=== PATIENT | female | born 1960 | race Caucasian/White ===

== ENCOUNTER → 2023-11-23 | Outpatient (CLI) | payer MEDICAID ==
[~2023-11-23] MED LIST: NO HOME MEDS
== END | disposition home or self-care (01) ==
LOC: VAS 14:56
PROVIDERS: ATTEND Nurse Practitioner Family
DX: R60.0 Localized edema (principal)
CPT/HCPCS: 93970

== ENCOUNTER 2023-12-18 14:03 | Emergency (ER) | payer MEDICAID ==
[~2023-12-18] VITALS: Ht 160 cm; Wt 121.0 kg
[2023-12-18] MEDS: famotidine 20mg tablet PO ONE (15:00)
[2023-12-18] MEDS: diphenhydrAMINE 50 mg/ml inj IM ONE (15:00)
[2023-12-18] MEDS: dexamethasone sod phosphate 10mg/ml inj IM STA (15:00)
[2023-12-18] MEDS ORDERED: CEPH-585 PO (15:32)
[2023-12-18] MEDS ORDERED: FAMO-129 PO (15:32)
[2023-12-18 15:54] VITALS: BP 132/70; PULSE 70; RESP 16; TEMP 97.5; O2SAT 99
== END 2023-12-18 15:56 | disposition home or self-care (01) ==
LOC: ER 14:03
DX: L24.9 Irritant contact dermatitis, unspecified cause (principal); M25.511 Pain in right shoulder; M79.89 Other specified soft tissue disorders; Z88.8 Allergy status to other drugs, medicaments and biological substances; Z79.2 Long term (current) use of antibiotics; Z79.899 Other long term (current) drug therapy; Z90.49 Acquired absence of other specified parts of digestive tract; Z98.890 Other specified postprocedural states
CPT/HCPCS: 96372; 99284; J1100; J1200

== ENCOUNTER 2024-02-19 15:17 | Outpatient (CLI) | payer MEDICAID ==
[~2024-02-19 15:17] MED LIST changes: +FAMO-129 PO
== END 2024-02-19 23:59 | disposition home or self-care (01) ==
LOC: MRI 15:17
PROVIDERS: ATTEND Nurse Practitioner Family
DX: M17.12 Unilateral primary osteoarthritis, left knee (principal); M25.562 Pain in left knee; M94.262 Chondromalacia, left knee; M25.462 Effusion, left knee
CPT/HCPCS: 73721

== ENCOUNTER 2025-03-11 15:00 | Outpatient (CLI) | payer MEDICAID ==
--- NOTE | 2025-03-11 16:35 | RADIOLOGY REPORT ---
EXAM: MR MRI LUMBAR SPINE CLINICAL HISTORY: LOW BACK PAIN COMPARISON: None TECHNIQUE: MRI imaging of the lumbar was performed on a MRI imaging system without intravenous contrast. FINDINGS: 5 ezl-npn-iazlzvd lumbar-type vertebrae. Mild straightening of the lumbar lordosis. The vertebral body heights are maintained. Inferior endplate Schmorl nodes of T10 to T12. No worrisome bone marrow signal. The conus terminates at the level of the Lower vertebral body of T12 with no abnormal cord signal. T12-L1: Minimal posterior disc bulge without significant spinal canal or neural foramina stenosis. L1-L2: Minimal posterior disc bulge without significant spinal canal or neural foramina stenosis. L2-L3: Posterior disc bulge with dorsal epidural lipomatosis and mild ligamentum flavum hypertrophy causing moderate spinal canal stenosis with moderate bilateral lateral recess narrowing. Zrig-yy-aldcpeib bilateral neural foramina stenosis. L3-L4: Grade 1 anterolisthesis of L3 on L4. Mild posterior disc bulge with dorsal epidural lipomatosis and ligamentum flavum hypertrophy causing severe spinal canal stenosis with severe bilateral lateral recess narrowing. Mild right with ywlq-gj-evlmeatj left-sided neural foramina stenosis. Mild right with bokj-jq-mnmaadkp left-sided facet effusion. L4-L5: Grade 1 anterolisthesis of L4 on L5. Mild posterior disc bulge causing mild right and xjbz-cw-upbvihys left-sided lateral recess narrowing without significant spinal canal stenosis. Bhso-fi-owxypfbn bilateral neural foramina stenosis. L5-S1: Minimal bilateral eccentric disc bulges without significant spinal canal stenosis. Ayui-pg-mfklhcpv bilateral neural foramina stenosis. Mild atrophy of the lower paraspinal muscles. Partially imaged 3.6 cm left renal cyst. IMPRESSION: Severe spinal canal stenosis with severe bilateral lateral recess narrowing at L3-LModerate spinal canal stenosis with moderate bilateral lateral recess narrowing at L2-L3. Ujlv-oc-yhlvmljt bilateral neural foramina stenosis at L2-L3 , L4-L5 and L5-S1 with qqrq-je-vgigdssq left-sided neural foramina stenosis at L3-L4
== END 2025-03-11 23:59 | disposition home or self-care (01) ==
LOC: MRI02 15:00
PROVIDERS: ATTEND Family Medicine
DX: M51.16 Intervertebral disc disorders with radiculopathy, lumbar region (principal); M54.50 Low back pain, unspecified; M43.16 Spondylolisthesis, lumbar region; G12.9 Spinal muscular atrophy, unspecified
CPT/HCPCS: 72148